=== PATIENT | male | born 1945 ===

== ENCOUNTER 2020-11-22 13:08 | Outpatient (CLI) | payer OTHER | END 2020-11-22 13:09 | disposition home or self-care (01) | LOC: RAD-FRANK 13:08 | PROVIDERS: ATTEND Nurse Practitioner Family | DX: S81.801A Unspecified open wound, right lower leg, initial encounter (principal); I77.6 Arteritis, unspecified; I73.9 Peripheral vascular disease, unspecified; M19.071 Primary osteoarthritis, right ankle and foot; M79.89 Other specified soft tissue disorders ==